=== PATIENT | male | born 1960 | race Two or more races ===

== ENCOUNTER 2023-02-19 18:55 | Inpatient (IN) | payer OTHER ==
[~2023-02-19] VITALS: Ht 157.5 cm; Wt 88.0 kg
[2023-02-19] MEDS ORDERED: TOPROL XL50 M1 (19:25)
[2023-02-19] MEDS ORDERED: METFORMIN HCL1000 M2 (19:26)
[2023-02-19 23:09] LABS: URINE APPEARANCE Turbid; URINE BILIRRUBIN Small (NEGATIVE); URINE BLOOD Trace; URINE COLOR Orange; URINE LEUKOCYTE Trace; URINE NITRATE Positive
[2023-02-19 23:12] LABS: URINE BACTERIA 331.3 uL (0.0-1933); URINE EPITHELIAL CELLS 197.2 uL (0.0-38.8); URINE RBC 3.8 uL (0.0-20.8); URINE WBC 20.8 uL (0.0-23.2)
[2023-02-19 23:30] LABS: HEMATOCRIT 36.4 % (39.0-48.0); HEMOGLOBIN 12.4 g/dL (13-16.00); MEAN CELL VOLUME 94.5 fL (80.0-100.00); MEAN CORPUSCULAR HEMOGLOBIN 32.3 pg (27.00-32.0); MEAN CORPUSCULAR HGB CONC 34.1 g/dl (32.0-36.0); PLATELET COUNT 190 K/uL (150-450); RED BLOOD COUNT 3.85 M/uL (4.00-6.00); RED CELL DISTRIBUTION WIDTH 12.5 % (11.5-14.5)
[2023-02-19 23:38] LABS: INR 1.31; PARTIAL THROMBOPLASTIN TIME 34.7 SECONDS (22.0-34.0); PROTHROMBIN TIME 13.5 SECONDS (9.0-11.5)
[2023-02-19 23:38] LABS: URINE EPITHELIAL CELLS 0-4 /HPF; URINE GLUCOSE 100 MG/DL (NEGATIVE); URINE PROTEIN 300 (NEGATIVE)
[2023-02-19 23:42] LABS: ALBUMIN 3.2 gm/dL (3.4-5.0); BILIRUBIN TOTAL 1.38 mg/dL (0.3-1.2); BILIRUBIN,CONJUGATED 0.52 mg/dL (0.0-0.2); BILIRUBIN,UNCONJUGATED 0.86 mg/dL (0.0-0.6); CALCIUM 9.3 mg/dL (8.5-10.1); CREATININE SERUM 1.66 mg/dL (0.70-1.30); GFR 42.47; GLOBULINA 4.5 G/DL (2.4-3.5); POTASSIUM 4.03 mEq/L (3.5-5.1); TOTAL PROTEIN 7.7 gm/dL (6.4-8.2)
[2023-02-21 08:29] LABS: HEMATOCRIT 33.2 % (39.0-48.0); HEMOGLOBIN 11.5 g/dL (13-16.00); MEAN CELL VOLUME 94.4 fL (80.0-100.00); MEAN CORPUSCULAR HEMOGLOBIN 32.6 pg (27.00-32.0); MEAN CORPUSCULAR HGB CONC 34.5 g/dl (32.0-36.0); PLATELET COUNT 201 K/uL (150-450); RED BLOOD COUNT 3.52 M/uL (4.00-6.00); RED CELL DISTRIBUTION WIDTH 12.4 % (11.5-14.5)
[2023-02-21 09:04] LABS: ALBUMIN 2.8 gm/dL (3.4-5.0); BILIRUBIN TOTAL 1.07 mg/dL (0.3-1.2); BILIRUBIN,CONJUGATED 0.53 mg/dL (0.0-0.2); BILIRUBIN,UNCONJUGATED 0.54 mg/dL (0.0-0.6); CALCIUM 8.4 mg/dL (8.5-10.1); CREATININE SERUM 0.98 mg/dL (0.70-1.30); GFR 78.02; GLOBULINA 3.6 G/DL (2.4-3.5); MAGNESIUM 1.7 mg/dL (1.8-2.4); PHOSPHOROUS 2.2 mg/dL (2.5-4.9); POTASSIUM 4.01 mEq/L (3.5-5.1); TOTAL PROTEIN 6.4 gm/dL (6.4-8.2); URIC ACID 3.5 mg/dL (3.5-8.5)
[2023-02-22] MEDS ORDERED: ROSUVASTATIN CA20 MG (08:58)
[2023-02-22] MEDS ORDERED: FENOFIBRATE145 MG (08:58)
[2023-02-22] MEDS ORDERED: OMEPRAZOLE40 MG (08:58)
[2023-02-22] MEDS ORDERED: TADALAFIL20 MG (08:58)
[2023-02-22] MEDS ORDERED: GLIMEPIRIDE4 M1 (08:58)
[2023-02-22] MEDS ORDERED: JANUVIA100 MG (08:58)
[2023-02-22] MEDS ORDERED: MAXIMUM D3325 MCG (08:58)
[2023-02-22] MEDS ORDERED: OZEMPIC0.25 MG/02 (08:58)
[2023-02-22] MEDS ORDERED: PRAMIPEXOLE D0.75 MG (08:58)
[2023-02-22] MEDS ORDERED: OMEGA-3 ACID ETH1 GM (08:58)
[2023-02-22] MEDS ORDERED: LOSARTAN POTAS100 MG (08:59)
[2023-02-23 07:13] LABS: ALBUMIN 2.4 gm/dL (3.4-5.0); BILIRUBIN TOTAL 1.08 mg/dL (0.3-1.2); CALCIUM 7.7 mg/dL (8.5-10.1); CREATININE SERUM 1.02 mg/dL (0.70-1.30); GFR 74.5; GLOBULINA 3.2 G/DL (2.4-3.5); POTASSIUM 3.65 mEq/L (3.5-5.1); TOTAL PROTEIN 5.6 gm/dL (6.4-8.2)
[2023-02-24 23:15] LABS: MEAN CELL VOLUME 96.4 fL (80.0-100.00); MEAN CORPUSCULAR HEMOGLOBIN 32.1 pg (27.00-32.0); MEAN CORPUSCULAR HGB CONC 33.1 g/dl (32.0-36.0); PLATELET COUNT 259 K/uL (150-450); RED CELL DISTRIBUTION WIDTH 13.4 % (11.5-14.5)
[2023-02-25 06:36] LABS: HEMATOCRIT 25.5 % (39.0-48.0); HEMATOCRIT 26.3 % (39.0-48.0); MEAN CELL VOLUME 93.9 fL (80.0-100.00); MEAN CORPUSCULAR HGB CONC 34.6 g/dl (32.0-36.0); PLATELET COUNT 263 K/uL (150-450); RED BLOOD COUNT 2.71 M/uL (4.00-6.00); RED BLOOD COUNT 2.77 M/uL (4.00-6.00); RED CELL DISTRIBUTION WIDTH 13.2 % (11.5-14.5)
[2023-02-25 06:37] LABS: HEMOGLOBIN 8.8 g/dL (13-16.00); HEMOGLOBIN 8.9 g/dL (13-16.00); MEAN CORPUSCULAR HEMOGLOBIN 32.4 pg (27.00-32.0)
[2023-02-25 07:27] LABS: ALBUMIN 1.9 gm/dL (3.4-5.0); CALCIUM 6.9 mg/dL (8.5-10.1); CREATININE SERUM 0.81 mg/dL (0.70-1.30); GFR 97.2; GLOBULINA 2.7 G/DL (2.4-3.5); POTASSIUM 4.13 mEq/L (3.5-5.1); TOTAL PROTEIN 4.6 gm/dL (6.4-8.2)
[2023-02-26 06:30] LABS: HEMATOCRIT 24.2 % (39.0-48.0); MEAN CELL VOLUME 95.2 fL (80.0-100.00); MEAN CORPUSCULAR HGB CONC 33.9 g/dl (32.0-36.0); PLATELET COUNT 300 K/uL (150-450); RED BLOOD COUNT 2.54 M/uL (4.00-6.00); RED CELL DISTRIBUTION WIDTH 13.2 % (11.5-14.5)
[2023-02-26 06:34] LABS: MEAN CORPUSCULAR HEMOGLOBIN 32.2 pg (27.00-32.0)
[2023-02-26 06:35] LABS: HEMOGLOBIN 8.2 g/dL (13-16.00)
[2023-02-26 07:11] LABS: ALBUMIN 1.8 gm/dL (3.4-5.0); BILIRUBIN TOTAL 0.76 mg/dL (0.3-1.2); CALCIUM 6.8 mg/dL (8.5-10.1); CREATININE SERUM 0.85 mg/dL (0.70-1.30); GFR 91.94; GLOBULINA 2.8 G/DL (2.4-3.5); POTASSIUM 3.78 mEq/L (3.5-5.1); TOTAL PROTEIN 4.6 gm/dL (6.4-8.2)
[2023-02-26 07:13] LABS: C-REACTIVE PROTEIN 15.6 MG/DL (0.00-0.29)
[2023-02-26 08:07] LABS: hav igm Negative (Negative); hcv Non Reactive (Non Reactive); hep b c Negative (Negative)
[2023-02-27 10:40] LABS: MEAN CELL VOLUME 94.7 fL (80.0-100.00); MEAN CORPUSCULAR HGB CONC 34.8 g/dl (32.0-36.0); PLATELET COUNT 343 K/uL (150-450); RED BLOOD COUNT 2.45 M/uL (4.00-6.00); RED CELL DISTRIBUTION WIDTH 13.3 % (11.5-14.5)
[2023-02-27 10:41] LABS: HEMATOCRIT 23.2 % (39.0-48.0); HEMOGLOBIN 8.1 g/dL (13-16.00)
[2023-02-27 10:56] LABS: FERRITIN 577.4 NG/ML (26-388)
[2023-02-28 07:39] LABS: HEMATOCRIT 24.2 % (39.0-48.0); MEAN CELL VOLUME 94.8 fL (80.0-100.00); PLATELET COUNT 398 K/uL (150-450); RED BLOOD COUNT 2.55 M/uL (4.00-6.00); RED CELL DISTRIBUTION WIDTH 13.5 % (11.5-14.5)
[2023-02-28 07:40] LABS: ALBUMIN 2.1 gm/dL (3.4-5.0); BILIRUBIN TOTAL 0.47 mg/dL (0.3-1.2); CALCIUM 7.4 mg/dL (8.5-10.1); CREATININE SERUM 0.86 mg/dL (0.70-1.30); GFR 90.71; GLOBULINA 3.2 G/DL (2.4-3.5); POTASSIUM 3.51 mEq/L (3.5-5.1); TOTAL PROTEIN 5.3 gm/dL (6.4-8.2)
[2023-02-28 07:45] LABS: C-REACTIVE PROTEIN 7.04 MG/DL (0.00-0.29)
[2023-02-28 07:53] LABS: HEMOGLOBIN 8.2 g/dL (13-16.00); MEAN CORPUSCULAR HEMOGLOBIN 32.1 pg (27.00-32.0)
[2023-03-01 12:30] LABS: PLATELET ESTIMATE NORMAL (NORMAL)
== END 2023-03-02 17:52 | disposition home or self-care (01) | DRG 415 ==
LOC: ER 18:56 → MEDJ 02-20 19:07 → SURG 02-24 20:56 → MEDJ 02-24 21:05 → MEDI 02-27 19:16
PROVIDERS: Emergency Medicine; Internal Medicine Hematology & Oncology; Internal Medicine Infectious Disease; Internal Medicine Nephrology; Student in an Organized Health Care Education/Training Program; Surgery; ADMIT Specialist; ATTEND Specialist
PROC: BW21ZZZ Computerized Tomography (CT Scan) of Abdomen and Pelvis (ICD-10-PCS; 2023-02-20)
PROC: 0FJ44ZZ Inspection of Gallbladder, Percutaneous Endoscopic Approach (ICD-10-PCS; 2023-02-24)
PROC: 0FT40ZZ Resection of Gallbladder, Open Approach (ICD-10-PCS; principal; 2023-02-24 13:00)
DX: K80.00 Calculus of gallbladder with acute cholecystitis without obstruction (principal); N17.8 Other acute kidney failure; D72.828 Other elevated white blood cell count; E11.9 Type 2 diabetes mellitus without complications; I10 Essential (primary) hypertension; Z79.4 Long term (current) use of insulin; Z53.31 Laparoscopic surgical procedure converted to open procedure

== ENCOUNTER → 2025-01-03 07:30 | Outpatient (CLI) | payer OTHER ==
[~2025-01-03 07:30] MED LIST: FENOFIBRATE145 MG; GLIMEPIRIDE4 M1; JANUVIA100 MG; LOSARTAN POTAS100 MG; MAXIMUM D3325 MCG; METFORMIN HCL1000 M2; OMEGA-3 ACID ETH1 GM; OMEPRAZOLE40 MG; OZEMPIC0.25 MG/02; PRAMIPEXOLE D0.75 MG; ROSUVASTATIN CA20 MG; TADALAFIL20 MG; TOPROL XL50 M1
== END | disposition home or self-care (01) ==
LOC: NUCLEAR 07:30
DX: C25.2 Malignant neoplasm of tail of pancreas (principal); C78.7 Secondary malignant neoplasm of liver and intrahepatic bile duct